=== PATIENT | female | born 1975 | race Caucasian/White ===

== ENCOUNTER → 2016-11-07 | Outpatient (CLI) | payer MEDICAID ==
--- NOTE | 2016-11-07 14:52 | US ---
EXAMINATION TYPE: US pelvic complete DATE OF EXAM: 11/07/2016 2:08 PM COMPARISON: No previous CLINICAL HISTORY: N83.20 PREV OVARIAN CYST. History of ovarian cysts, irregular cycles, 4, pa ra 2, miscarriage 2, history of 2 c-sections TECHNIQUE: Transvaginal (TV) and Transabdominal (TA) Date of LMP: 2 weeks ago EXAM MEASUREMENTS: Uterus: 7.5 x 3.7 x 4.9 cm Endometrial Stripe: 0.7 cm Right Ovary: 1.9 x 2.4 x 3.3 cm Left Ovary: not seen Transvaginal scanning was performed for better evaluation of the uterus 1. Uterus: anteverted, heterogeneous echotexture with 0.9 x 0.6 x 0.9cm hypoechoic area anterior aldo metrium 2. Endometrium: wnl 3. Right Ovary: multiple cystic areas with largest measuring 1.1cm 4. Left Ovary: not seen due to overlying bowel gas 5. Bilateral Adnexa: wnl 6. Posterior cul-de-sac: small amount of free fluid Grayscale, color Doppler imaging performed, there is color flow to the right ovary. IMPRESSION: Fibroid uterus, limited exam
== END ==
LOC: RADUSWWP 13:42
PROVIDERS: ATTEND Obstetrics & Gynecology
DX: D25.9 Leiomyoma of uterus, unspecified (principal); N83.202 Unspecified ovarian cyst, left side
CPT/HCPCS: 76830; 76856